=== PATIENT | male | born 1945 | race Hispanic/Latino ===

== ENCOUNTER → 2018-06-11 | Outpatient (CLI) | payer OTHER | END | disposition home or self-care (01) | LOC: RAH 08:06 | PROVIDERS: ATTEND Orthopaedic Surgery | DX: M51.37 Other intervertebral disc degeneration, lumbosacral region (principal); M13.811 Other specified arthritis, right shoulder; M13.812 Other specified arthritis, left shoulder; M25.78 Osteophyte, vertebrae; M48.07 Spinal stenosis, lumbosacral region | CPT/HCPCS: 72100; 73030 ==

== ENCOUNTER → 2021-05-17 | Outpatient (CLI) | payer OTHER | END | disposition home or self-care (01) | LOC: SHCH 08:31 | PROVIDERS: ATTEND Internal Medicine Cardiovascular Disease | DX: I11.9 Hypertensive heart disease without heart failure (principal); E11.9 Type 2 diabetes mellitus without complications; I45.10 Unspecified right bundle-branch block | CPT/HCPCS: 93306 ==

== ENCOUNTER → 2024-05-04 | Outpatient (CLI) | payer OTHER ==
[~2024-05-04] MED LIST: CARB1TAB41 PO; CYAN500T9 PO; EMPA25TA PO; ESCI-8 PO; HYDR12.54 PO; KETO5DRO40 OP; LISI20TA24 PO; LORA10TA7 PO; MECL-226 PO; PIOG30TA70 PO; SIMV80TA91 PO
--- NOTE | 2024-05-05 11:59 | HMCIMG ---
WHOLE-BODY BONE SCAN. INDICATION: Malignant neoplasm of prostate TECHNIQUE: Whole-body bone scan was performed 4 hours following the administration of 23.0 mCi of Tc 99m MDP. COMPARISON: None available. FINDINGS: No abnormal radiotracer uptake identified. Mild increased radiotracer uptake identified in both shoulders joints, probably degenerative in nature. Normal uptake within both kidneys and urinary bladder. IMPRESSION: Degenerative changes, otherwise normal whole body bone scan.
== END ==
LOC: RAH 12:21
PROVIDERS: ATTEND Urology
DX: C61 Malignant neoplasm of prostate (principal)
CPT/HCPCS: 78306; A9503